=== PATIENT | female | born 1955 | race Caucasian/White ===

== ENCOUNTER 2024-08-31 13:18 | Emergency (ER) | payer OTHER, MEDICAID ==
[~2024-08-31] VITALS: Ht 172.7 cm; Wt 75.0 kg
--- NOTE | 2024-08-31 14:39 | DVH ---
XY CHEST TWO VIEWS ROUTINE, HISTORY: fall COMPARISON: None None TECHNICAL DATA: 2 view of the chest was obtained. FINDINGS: Lines and tubes: None Cardiomediastinal silhouette: normal Pulmonary vasculature: normal Lung expansion: normal Lung airspace: normal Lung interstitium: normal Pleura: normal Pneumothorax: no Bones: Lower thoracic cement material is seen. Other: no IMPRESSION: No acute intrathoracic abnormality.
--- NOTE | 2024-08-31 14:42 | DVH ---
CLINICAL INDICATION: fall TECHNIQUE: 4 radiographic views of the right ribs were obtained. Comparison: None FINDINGS/IMPRESSION: There is no evidence of acute fracture or dislocation. Calcification inferior to the right humeral head and glenoid may represent degenerative change chroni c disease or acute avulsion. No prior studies for comparison. Mild compression L1 age indeterminate. The visualized joint space is well maintained. The alignment is anatomical. There is no radiopaque foreign body.
[2024-08-31] MEDS: HYDROcodone-ACET 5/325MG TAB PO ONE (14:43)
--- NOTE | 2024-08-31 14:52 | ED.PDOC ---
Sohailt. trauma (HPI) HPI Comments 69y F who presents to the ED for chief complaint of rib cage pain. Pt states she was taking a bath earlier this AM and she slipped and fell and landed on the R side of chest to help break her fall. Pt denies any associated loss of consciousness or injury to head. Pt states she has since been having chest pain when taking deep breaths. Pt states she has also been having R foot and R hip pain. Pt states she was able to ambulate to the restroom. Pt otherwise denies any other symptoms at this time . Chief Complaint: Rib Pain Time Seen by MD: 15:27 Primary Care Provider: BERT Reviewed notes: Medications, Allergies Allergies: Coded Allergies: NO KNOWN ALLERGIES (Unverified , 08/31/24) Information Source: Patient Mode of Arrival: Ambulatory Constitutional: denies: chills, diaphoresis, fatigue, fever, malaise, sweats, weakness, others EENTM: denies: blurred vision, double vision, ear bleeding, ear discharge, ear drainage, ear pain, ear ringing, eye pain, eye redness, hearing loss, mouth pain, mouth swelling, nasal discharge, nose bleeding, nose congestion, nose pain, photophobia, tearing, throat pain, throat swelling, voice changes, others Respiratory: denies: cough, hemoptysis, orthopnea, SOB at rest, shortness of breath, SOB with excertion, stridor, wheezing, others Cardiovascular: denies: chest pain, dizzy spells, diaphoresis, Dyspnea on exertion, edema, irregular heart beat, left arm pain, lightheadedness, palpitations, PND, syncope, others Gastrointestinal: denies: abdomen distended, abdominal pain, blood streaked bowels, constipated, diarrhea, dysphagia, difficulty swallowing, hematemesis, melena, nausea, poor appetite, poor fluid intake, rectal bleeding, rectal pain, vomiting, others Genitourinary: denies: abnormal vagina bleeding, burning, dyspareunia, dysuria, flank pain, frequency, hematuria, incontinence, pain, , vagina discharge, urgency, others Neurological: denies: dizziness, fainting, headache, left sided numbness, left sided weakness, numbness, paresthesia, pre-existing deficit, right sided numbness, right sided weakness, seizure, speech problems, tingling, tremors, weakness, others Musculoskeletal: reports: others (chest wall pain); denies: back pain, gout, joint pain, joint swelling, muscle pain, muscle stiffness, neck pain Integumetry: denies: bruises, change in color, change in hair/nails, dryness, laceration, lesions, lumps, rash, wounds, others Allergic/Immunocompromised: denies: Difficulty Healing, Frequent Infections, Hives, Itching, others Hematologic/Lymphatic: denies: anemia, blood clots, easy bleeding, easy b ruising, swollen glands, others Endocrine: denies: excessive hunger, excessive sweating, excessive thirst, excessive urination, flushing, intolerance to cold, intolerance to heat, unexplained weight gain, unexplained weight loss, others Psychiatric: denies: anxiety, bipolar disorder, depression, hopeless, panic disorder, schizophrenia, sleepless, suicidal, others All Other Systems: Reviewed and Negative Physical Exam General Appearance: No Apparent Distress, Normal HEENT: Normal ENT Inspection, Pharynx Normal, TMs Normal Neck: Full Range of Motion, Non-Tender, Normal, Normal Inspection Respiratory: Chest Non-Tender, Lungs Clear, No Accessory Muscle Use, No Respiratory Distress, Normal Breath Sounds Cardiovascular: Other (tenderness to R lower chest wall ) Breast Exam: Deferred Gastrointestinal: No Organomegaly, Non Tender, No Pulsatile Mass, Normal Bowel Sounds, Soft Genitalia: Deferred Pelvic: Deferred Rectal: Deferred Extremities: No calf tenderness, Normal capillary refill, Normal inspection, Normal range of motion, Non-tender, No pedal edema Musculoskeletal : Apperance: Normal Neurologic: Alert, insert operator II-XII nml as Tested, No Motor Deficits, Normal Affect, Normal Mood, No Sensory Deficits Cerebellar Function: Normal Reflexes: Normal Skin: Dry, Normal Color, Warm Lymphatic: No Adenopathy Was a procedure done? Was a procedure done?: No Differential Diagnosis Multiple Trauma: Intraabdominal Injury, Pulmonary Contusion, Abrasions, Contusion, Other (chest wall pain) X-Ray, Labs, Meds, VS Vital Signs Date Time Temp Pulse Resp B/P (MAP) Pulse Ox O2 Delivery O2 Flow Rate FiO2 08/31/24 15:09 98.4 78 16 115/70 (85) 95 98.4 08/31/24 15:09 78 17 95 Room Air 08/31/24 13:21 98.4 84 18 124/78 93 95 98.4 Current Medications Medications (Trade) Dose Ordered Sig/Brenda Route Start Time Stop Time Status Last Admin Acetaminophen/ Hydrocodone Bitart (Genoa 5/325MG Tab) 1 tab ONCE ONCE PO 08/31/24 13:30 08/31/24 13:31 DC 08/31/24 14:43 Time of 1ST Reevaluation: 16:00 Reevaluation 1ST: Unchanged Patient Education/Counseling: Diagnosis, Treatment Family Education/Counseling: No Family Present Departure 1 Departure Time of Disposition: 15:59 (With a likely right 5th metatarsal fracture. Rest of workup is benign. She had likely bruised your ribs.) Impression: Primary Impression: Fall Qualified Codes: W19.XXXA - Unspecified fall, initial encounter Additional Impressions: Bruised ribs Qualified Codes: S20.211A - Contusion of right front wall of thorax, initial encounter Nondisplaced fracture of fifth right metatarsal bone Qualified Codes: S92.354A - Nondisplaced fracture of fifth metatarsal bone, right foot, initial encounter for closed fracture Disposition: 01 HOME / SELF CARE / HOMELESS Condition: Stable Additional Instructions: Your x-rays today showed bruised but not broken ribs, he had likely old fracture of your L1 spine, a likely broken toe. You were placed in a hard-soled shoe for the toe For pain you can take the followinam: Ibuprofen 400mg with food Noon: Acetaminophen 1000mg 4pm: Ibuprofen 400mg with food 8pm: Acetaminophen 1000mg You were prescribed oxycodone to take as needed for breakthrough pain. You can use over the counter lidocaine patches daily for rib pain. You should follow up with your regular doctor within one week to ensure you are doing better. You were referred to orthopedics regarding the toe. If your symptoms worsen or you have any other concerns then please return to the ER. e-Prescriptions Oxycodone Hcl (OXYCODONE HCL) 5 Mg Tb 5 MG PO QID PRN for 5 Days, #20 TAB Prov: DONNA ORTIZ MD 08/31/24 Discharged With: Power [employer] Helper Critical Care Note Critical Care Time?: No Stability Stability form required: No Heart Score Heart Score: Heart Score Response (Comments) Value History N/A 0 EKG N/A 0 Age N/A 0 Risk Factors N/A 0 Troponin N/A 0 Total 0 I personally scribed for DONNA ORTIZ MD ([facility] on 08/31/24 at 14:52. Electronically submitted by Padmini Juarez ([facility] I personally scribed for DONNA ORTIZ MD ([facility]) on 08/31/24 at 15:29. Electronically submitted by Padmini Juarez ([facility]). DONNA ORTIZ MD Aug 31, 2024 14:52
--- NOTE | 2024-08-31 14:59 | DVH ---
CLINICAL INDICATION: fall TECHNIQUE: XY R HIP 1V XRAY Comparison: None FINDINGS/IMPRESSION: : There is no evidence of acute fracture or dislocation on single projection. There is posterior spinal fixation hardware at L5-S1 with anterior spinal fixation appearing also at this level. Degenerative change of the visualized sacroiliac joints. Phleboliths project over the pelvis.
--- NOTE | 2024-08-31 15:05 | DVH ---
CLINICAL INDICATION: fall TECHNIQUE: XY R FOOT 3 VIEW XRAY Comparison: None FINDINGS/IMPRESSION: : Bony demineralization. This limits evaluation for acute osseous abnormality. On the oblique projection there appears to be a linear lucency in the 5th metatarsal head which could reflect a nondisplaced fracture. Correlate with point tenderness in this location. [id number] 1st MTP joint osteoarthritis. Degenerative change of the dorsum of the midfoot. Partially imaged lateral plate and multiple screw fixation of the distal fibula and 2 partially threa ded screws through the medial malleolus. The hardware components appear intact on this radiograph alt martha not optimally imaged.
[2024-08-31 15:09] VITALS: BP 115/70; PULSE 78; RESP 17; TEMP 98.4; O2SAT 95
[2024-08-31] MEDS: LIDOCAINE 5% TOPICAL PATCH TOP ONE (16:01)
[2024-08-31] MEDS ORDERED: OXY5T PO (16:02)
== END 2024-08-31 16:20 | disposition home or self-care (01) ==
LOC: ER 13:18 → EDSEX 13:18 → ER 16:19
DX: S92.354A Nondisplaced fracture of fifth metatarsal bone, right foot, initial encounter for closed fracture (principal); S20.211A Contusion of right front wall of thorax, initial encounter; M19.071 Primary osteoarthritis, right ankle and foot; W01.0XXA Fall on same level from slipping, tripping and stumbling without subsequent striking against object, initial encounter; Y93.E1 Activity, personal bathing and showering; Y92.89 Other specified places as the place of occurrence of the external cause; Y99.8 Other external cause status
CPT/HCPCS: 71046; 71101; 73501; 73630